=== PATIENT | male | born 1965 | race Asian ===

== ENCOUNTER 2021-06-18 12:12 | Day surgery (SDC) | payer MEDICAID ==
[~2021-06-18 12:12] MED LIST: WATER FOR IRRIG STERILE 1,500 ML BOTTLE IR ONE; WATER FOR IRRIG STERILE 2000 ML IR ONE
[2021-06-18] MEDS ORDERED: LACTATED RINGERS 1,000 ML IV SCH (12:30)
--- NOTE | 2021-06-18 12:50 | Anesthesia Day of Surgery ---
Anesthesia Day of Surgery - Day of Surgery Patient Examined: Yes Patient H&P Reviewed: Yes Patient is NPO: Yes
[2021-06-18] MEDS ORDERED: HYDROmorphone 1 MG/1 ML INJ IV PRN ×2 (12:51)
[2021-06-18] MEDS ORDERED: ONDANSETRON 4 MG/2 ML INJ IV PRN (12:51)
--- NOTE | 2021-06-18 12:51 | Anesthesia Consultation ---
Anesthesia Consult and Med Hx Date of service: 06/18/21 - Airway Anesthetic Teeth Evaluation: Caps ROM Head & Neck: Adequate Mental/Hyoid Distance: Adequate Mallampati Class: Class II Intubation Access Assessment: Good - Pre-Operative Health Status ASA Pre-Surgery Classification: ASA2 Proposed Anesthetic Plan: General - Pulmonary Hx Smoking: Yes (Quit) - Cardiovascular System Hx Hypertension: Yes (Self-d/c'd meds) - Central Nervous System Hx Back Pain: Yes - Gastrointestinal Hx Gastroesophageal Reflux Disease: No - Hematic Hx Sickle Cell Disease: No - Other Systems Hx Substance Use: Yes (MJ) Hx Obesity: No
[2021-06-18] MEDS ORDERED: MIDAZOLAM 2 MG/2 ML INJ IV NR (13:00)
[2021-06-18] MEDS ORDERED: SODIUM CHLORIDE 0.9% 1000 ML 1,000 ML IV SCH (13:15)
[2021-06-18] MEDS ORDERED: LIDOCAINE MPF (2%) 20 MG/1 ML VIAL 5 ML ONE (13:25)
[2021-06-18] MEDS ORDERED: ONDANSETRON 4 MG/2 ML INJ ONE (13:25)
[2021-06-18] MEDS ORDERED: fentaNYL 100 MCG/2 ML INJ ONE (13:25)
[2021-06-18] MEDS ORDERED: propofoL 200 MG/20 ML VIAL IV ONE (13:26)
[2021-06-18] MEDS ORDERED: dexAMETHasone 20 MG/5 ML VIAL ONE (13:30)
[2021-06-18] MEDS ORDERED: ceFAZolin/STERILE WATER 2 GM/20 ML SYRINGE IV NR (14:00)
[2021-06-18] MEDS ORDERED: WATER FOR IRRIG STERILE 2000 ML IR ONE (14:26)
[2021-06-18] MEDS ORDERED: WATER FOR IRRIG STERILE 1,500 ML BOTTLE IR ONE (14:26)
[2021-06-18 15:38] VITALS: BP 159/97
--- NOTE | 2021-06-18 15:41 | Post Anesthesia Evaluation ---
- Post Anesthesia Evaluation Patient Participated: Yes Airway Patent: Yes Stable Respiratory Function: Yes Nausea/Vomiting: No Temp > 96.8F: Yes Pain Manageable: Yes Adequeate Hydration: Yes Anesthesia Complications: No Block Receding Appropriately: Not Applicable Patient on Ventilator: No
--- NOTE | 2021-06-19 10:34 | Post Operative Note ---
Pre-op diagnosis: Bladder lesion Post-op diagnosis: same Findings: Bullous edema at trigone consistent with prior TURBT, likely cytitis Procedure: Cystoscopy, bladder biopsy Anesthesia: GETA Surgeon: OSBALDO HURST Estimated blood loss: none Pathology: list (Bladder biopsy) Specimen disposition: to lab Condition: stable Disposition: PACU
--- NOTE | 2021-06-27 17:00 | Operative Report ---
DATE OF SURGERY: 06/18/2021 PREOPERATIVE DIAGNOSES: 1. History of adenocarcinoma of the bladder. 2. Bladder lesion. POSTOPERATIVE DIAGNOSES: 1. History of adenocarcinoma of the bladder. 2. Bladder lesion. OPERATIVE PROCEDURE: Cystoscopy with bladder biopsy. SURGEON: Jim Mojica MD ANESTHESIA: General. ESTIMATED BLOOD LOSS: 10 mL. SPECIMEN: Bladder biopsy from the trigone. DRAINS: None. SPECIMENS: None. INDICATION FOR PROCEDURE: The patient is a 56-year-old man with a history of adenocarcinoma of the bladder, who has been managed with serial surveillance cystoscopies and imaging studies. He underwent a recent surveillance cystoscopy, which showed a lesion on the bladder that was suspicious. DESCRIPTION OF PROCEDURE IN DETAIL: After induction of suitable anesthesia and proper positioning and preparation in the dorsal lithotomy position, a cystoscopy was performed with both 30 and 70-degree cystoscope. There was some edema at the bladder neck and trigone. On rigid cystoscopy, this edema appeared more benign than on flexible cystoscopy. It appeared to be bullous edema or cystitis cystica. It did not appear to be adenocarcinoma of the bladder. A herbicide service sales representative biopsy of this lesion was taken with the flexible biopsy forceps. The Bugbee electrode was used to cauterize the biopsy site. The site was inspected carefully after fulguration and it was hemostatic. The bladder was emptied and the cystoscope was removed. The patient was then awakened from anesthesia and transported to the recovery room in stable condition. He tolerated the procedure well. He will return in a couple weeks to review pathology results. TID: [id number] RECEIPT: [id number] RAYMOND/GIANNA
== END 2021-06-18 15:25 | disposition home or self-care (01) ==
LOC: OR 12:12
PROVIDERS: ATTEND Urology
DX: C67.9 Malignant neoplasm of bladder, unspecified (principal); I10 Essential (primary) hypertension; Z87.891 Personal history of nicotine dependence; Z79.899 Other long term (current) drug therapy; Z98.890 Other specified postprocedural states
CPT/HCPCS: 52204; 88112; 88305; A4217; J0690; J1100; J2250; J2405; J2704; J3010; J7030